=== PATIENT | male | born 1970 ===

== ENCOUNTER 2023-11-28 08:00 | Outpatient (CLI) | payer SELFPAY ==
--- NOTE | 2023-11-28 17:06 | XRAY Report ---
PROCEDURE: Abdomen Acute INDICATIONS: ABDOMINAL DISTENSION/EXCESSIVE BELCHING TECHNIQUE: 5 views of the abdomen were acquired. COMPARISON: None. FINDINGS: Surgical changes and devices: None. Chest: Lungs are clear. Heart size is normal. No pleural effusions. No pneumoperitoneum. Bowel: No pneumoperitoneum. The bowel gas pattern is normal. Mild to moderate amount of fecal matte r is seen in ascending colon and transverse colon. Soft tissues: No masses; visualized solid organ contours appear normal in size. No suspicious abdom inal calcifications. Bones: No suspicious bony abnormalities. IMPRESSION: Mild constipation. No gross free air. No acute cardiopulmonary pathology. Reviewed by: Donte Seo MD on 11/28/2023 5:04 PM PDT Approved by: Donte Seo MD on 11/28/2023 5:04 PM PDT Station ID: [id number]
== END 2023-11-28 23:59 | disposition home or self-care (01) ==
LOC: DI.S 08:00
PROVIDERS: ATTEND Registered Nurse
DX: R14.0 Abdominal distension (gaseous) (principal); R14.2 Eructation